=== PATIENT | male | born 1995 | race American Indian/Alaskan Native ===

== ENCOUNTER 2022-05-19 16:05 | Emergency (ER) | payer SELFPAY ==
[2022-05-19] MEDS ORDERED: ACETAMINOPHEN 500 MG TAB PO SCH (16:36)
--- NOTE | 2022-05-19 16:36 | Emergency Department Report ---
Minor Respiratory - HPI Duration: 2 Days Pain Location: Chest Severity: mild Minor Respiratory: Yes Able to Tolerate Fluids, Yes Chest Pain, Yes Shortness of Breath, No Rhinorrhea, No Sore Throat, No Ear Pain, No Cough, No Sick Contacts, No Hemoptysis, No Fever Other History: 27 YO COMES TO ER WITH FEVER AND CHILLS. COUGH AND CONGESTION. NOT COVID IMMUNIZED <RUPattKENJI DICKINSON - Last Filed: 05/19/22 16:55> <JEANNINE HART - Last Filed: 05/20/22 16:09> - HPI Stated Complaint: SOB/CHEST PAIN/FATIGUGE/SHAKING ED Review of Systems ROS: Stated complaint: SOB/CHEST PAIN/FATIGUGE/SHAKING Other details as noted in HPI Comment: All other systems reviewed and negative <KENJI ALFREDO - Last Filed: 05/19/22 16:55> ROS: Stated complaint: SOB/CHEST PAIN/FATIGUGE/SHAKING Other details as noted in HPI <JEANNINE HART - Last Filed: 05/20/22 16:09> ED Past Medical Hx - Past Medical History Previous Medical History?: Yes Hx Asthma: Yes - Surgical History Past Surgical History?: No Hx Coronary Stent: No - Family History Family history: no significant - Social History Smoking Status: Never Smoker Substance Use Type: None <KENJI ALFREDO Rigoberto - Last Filed: 05/19/22 16:55> Minor Respiratory Exam - Exam General: Vital signs noted. No distress. Alert and acting appropriately. HEENT: Yes Moist Mucous Membranes, No Pharyngeal Erythema, No Pharyngeal Exudates, No Rhinorrhea, No Conjuctival Injection, No Frontal Tenderness, No Maxillary Tenderness Ear: Neither TM Bulge, Neither TM Erythema, Neither EAC Pain, Neither EAC Discharge Neck: Yes Supple, No Adenopathy Lungs: Yes Good Air Exchange, No Wheezes, No Ronchi, No Stridor, No Cough, No Labored Respirations, No Retractions, No Use of Accessory Muscles, No Other Abnormal Lung Sounds Heart: Yes Regular, No Murmur Abdomen: Yes Normal Bowel Sounds, No Tenderness, No Peritoneal Signs Skin: No Rash, No Edema Neurologic: Alert and oriented, no deficits. Musculoskeletal: Unremarkable. <KENJI ALFREDO - Last Filed: 05/19/22 16:55> - Exam General: Vital signs noted. No distress. Alert and acting appropriately. Neurologic: Alert and oriented, no deficits. Musculoskeletal: Unremarkable. <JEANNINE HART - Last Filed: 05/20/22 16:09> ED Course Vital Signs 05/19/22 05/19/22 05/19/22 16:37 20:24 21:00 Temperature 101.8 F H 98.6 F Pulse Rate 130 H 98 H 80 Respiratory 18 14 Rate Blood Pressure 125/90 121/73 [Left] O2 Sat by Pulse 100 100 100 Oximetry <JEANNINE HART - Last Filed: 05/20/22 16:09> ED Medical Decision Making - Medical Decision Making MSE XRAY AND LABS TO ER FOR EVAL - Differential Diagnosis PUI <KENJI ALFREDO - Last Filed: 05/19/22 16:55> - Lab Data Result diagrams: 05/19/22 16:51 05/19/22 16:51 - Medical Decision Making Patient was managed independently by the [facility] level below , I was available for consult but i wasn't directly involved in the care of this patient <JEANNINE HART - Last Filed: 05/20/22 16:09> Critical care attestation.: If time is entered above; I have spent that time in minutes in the direct care of this critically ill patient, excluding procedure time. <KENJI ALFREDO A - Last Filed: 05/19/22 16:55> Critical care attestation.: If time is entered above; I have spent that time in minutes in the direct care of this critically ill patient, excluding procedure time. <JEANNINE HART - Last Filed: 05/20/22 16:09> ED Disposition Is pt being admited?: No Does the pt Need Aspirin: No <KENJI ALFREDO - Last Filed: 05/19/22 16:55> Is pt being admited?: No Does the pt Need Aspirin: No <JEANNINE HART - Last Filed: 05/20/22 16:09> Clinical Impression: Acute upper respiratory infection, Fever and chills Disposition: 01 HOME / SELF CARE / HOMELESS Condition: Stable Instructions: Cough, Adult, Onkc-ls-[id number], Acute Bronchitis, Adult, Xsya-ry-Nosw, Upper Respiratory Infection, Adult, Zzgl-cn-Gngz, Asthma, Adult, Gjsy-yg-Mche, Fever, Adult, Sjnx-aw-Wqkk, Acute Bronchitis (ED) Additional Instructions: All lab test results were reviewed and all nonactionable. Chest x-ray shows no acute cardiopulmonary abnormalities or pneumonitis. Take medication with food, drink plenty fluids follow-up with your primary care physician in 7 to 10 days for reevaluation. Prescriptions: methylPREDNISolone [Medrol 4MG DOSEPAK (21 tabs)] 4 mg PO DAILY #21 tab Ibuprofen [Motrin] 800 mg PO Q8HR PRN #30 tablet PRN Reason: Pain , Severe (7-10) Albuterol Sulfate [Proair Digihaler] 1 - 2 puff IH Q4H PRN #1 inh PRN Reason: Shortness Of Breath ALBUTEROL NEB's [Proventil 0.083% NEBS] 3 ml IH Q6H PRN #75 ml PRN Reason: Wheezing Benzonatate [Tessalon Perles] 100 mg PO Q8HR #30 cap Azithromycin [Zithromax Z-TIGIST] 250 mg PO DAILY #6 tab Cetirizine HCl [Zyrtec 10mg tab] 10 mg PO DAILY #30 tab Referrals: [facility] [Provider Group] - 7-10 days Print Language: MOZAMBICAN
--- NOTE | 2022-05-19 17:02 | XRay Report ---
CHEST 2 VIEWS INDICATION / CLINICAL INFORMATION: SOB x 2days. FINDINGS: SUPPORT DEVICES: None. HEART / MEDIASTINUM: No significant abnormality. LUNGS / PLEURA: No significant pulmonary or pleural abnormality. No pneumothorax. ADDITIONAL FINDINGS: No significant additional findings. IMPRESSION: 1. No acute findings. Signer Name: Nelson Lao MD Signed: 05/19/2022 4:58 PM Workstation Name: Take the Interview
[2022-05-19 17:30] LABS: Hematocrit 43.8 % (35.5-45.6); Hemoglobin 14.2 gm/dl (11.8-15.2); Mean Corpuscular HGB Conc 33 % (32-34); Mean Corpuscular Volume 87 fl (84-94); Platelet Count 260 K/mm3 (140-440); Red Blood Count 5.04 M/mm3 (3.65-5.03); Red Cell Distribution Width 13.8 % (13.2-15.2)
[2022-05-19 17:40] LABS: Alanine Aminotransferase 36 units/L (7-56); Albumin 5.2 g/dL (3.9-5); BUN/Creatinine Ratio 8; Blood Urea Nitrogen 9 mg/dL (9-20); Calcium 9.6 mg/dL (8.4-10.2); Hemolysis Index 10
[2022-05-19 20:25] VITALS: BP 121/73
[2022-05-19] MEDS ORDERED: methylPREDNISolone Sod Succinate 125 MG/2 ML INJ IM ONE (21:08)
--- NOTE | 2022-05-19 21:29 | Emergency Department Report ---
- General Chief Complaint: Dyspnea/Respdistress Stated Complaint: SOB/CHEST PAIN/FATIGUGE/SHAKING Source: patient Mode of arrival: Ambulatory Limitations: No Limitations - History of Present Illness Initial Comments: Patient is a 27-year-old male with a history of asthma and morbid obesity who presents to the ED with complaint of acute onset persistent nasal and sinus congestion, diffuse body aches and pains, persistent dry cough with wheezing intermittently and pleuritic chest pain with each coughing episode for the last 1 week. Patient states that the symptoms have been persistent and that in the last 2 days he also experienced persistent intermittent fever and chills with body aches and pains. Patient states that he has been using albuterol inhaler and nebulizer at home with minimal relief. Patient denies dizziness, syncope, chest pain, shortness of breath, abdominal pain, nausea and vomiting or diarrhea, dysuria, urinary frequency and urgency or headache. MD Complaint: fever, cough, rhinorrhea, nasal congestion, sinus pain, other (pleuritic chest) -: Gradual, days(s) (5) Severity: moderate Severity scale (0 -10): 5 Quality: dull, aching Consistency: constant Improves With: nothing Worsens With: nothing Associated Symptoms: denies other symptoms, fever, chills, myalgias, headache, rhinorrhea, nasal congestion, cough, shortness of breath. denies: diaphoresis, sore throat, stiff neck, chest pain, abdominal pain, nausea, diarrhea, dysuria, confusion, right sweats, weight loss, epistaxis, hoarseness, ear pain, other Treatments Prior to Arrival: "cold medicine" - Related Data Previous Rx's Medication Instructions Recorded Last Taken Type ALBUTEROL NEB's [Proventil 0.083% 3 ml IH Q6H PRN #75 ml 05/19/22 Unknown Rx NEBS] Albuterol Sulfate [Proair 1 - 2 puff IH Q4H PRN #1 inh 05/19/22 Unknown Rx Digihaler] Azithromycin [Zithromax Z-TIGIST] 250 mg PO DAILY #6 tab 05/19/22 Unknown Rx Benzonatate [Tessalon Perles] 100 mg PO Q8HR #30 cap 05/19/22 Unknown Rx Cetirizine HCl [Zyrtec 10mg tab] 10 mg PO DAILY #30 tab 05/19/22 Unknown Rx Ibuprofen [Motrin] 800 mg PO Q8HR PRN #30 tablet 05/19/22 Unknown Rx methylPREDNISolone [Medrol 4MG 4 mg PO DAILY #21 tab 05/19/22 Unknown Rx DOSEPAK (21 tabs)] Allergies Allergy/AdvReac Type Severity Reaction Status Date / Time No Known Allergies Allergy Unverified 05/19/22 16:41 ED Review of Systems ROS: Stated complaint: SOB/CHEST PAIN/FATIGUGE/SHAKING Other details as noted in HPI Constitutional: denies: chills, fever Eyes: denies: eye pain, eye discharge, vision change ENT: congestion. denies: ear pain, throat pain Respiratory: no symptoms reported, cough, shortness of breath, wheezing Cardiovascular: denies: chest pain, palpitations Endocrine: no symptoms reported Gastrointestinal: denies: abdominal pain, nausea, vomiting, diarrhea Genitourinary: denies: urgency, dysuria, frequency, hematuria, discharge, testicular pain, testicular mass Musculoskeletal: denies: back pain, joint swelling, arthralgia Skin: denies: rash, lesions Neurological: headache. denies: weakness, paresthesias Psychiatric: denies: anxiety, depression Hematological/Lymphatic: denies: easy bleeding, easy bruising ED Past Medical Hx - Past Medical History Previous Medical History?: Yes Hx Asthma: Yes - Surgical History Past Surgical History?: No Hx Coronary Stent: No - Social History Smoking Status: Never Smoker Substance Use Type: None - Medications Home Medications: Home Medications Medication Instructions Recorded Confirmed Last Taken Type ALBUTEROL NEB's [Proventil 0.083% 3 ml IH Q6H PRN #75 ml 05/19/22 Unknown Rx NEBS] Albuterol Sulfate [Proair 1 - 2 puff IH Q4H PRN #1 inh 05/19/22 Unknown Rx Digihaler] Azithromycin [Zithromax Z-TIGIST] 250 mg PO DAILY #6 tab 05/19/22 Unknown Rx Benzonatate [Tessalon Perles] 100 mg PO Q8HR #30 cap 05/19/22 Unknown Rx Cetirizine HCl [Zyrtec 10mg tab] 10 mg PO DAILY #30 tab 05/19/22 Unknown Rx Ibuprofen [Motrin] 800 mg PO Q8HR PRN #30 tablet 05/19/22 Unknown Rx methylPREDNISolone [Medrol 4MG 4 mg PO DAILY #21 tab 05/19/22 Unknown Rx DOSEPAK (21 tabs)] ED Physical Exam - General Limitations: No Limitations General appearance: alert, in no apparent distress - Head Head exam: Present: atraumatic, normocephalic, normal inspection - Eye Eye exam: Present: normal appearance, PERRL, EOMI Pupils: Present: normal accommodation - ENT ENT exam: Present: normal orophraynx, mucous membranes moist, TM's normal bilaterally, normal external ear exam - Neck Neck exam: Present: normal inspection, full ROM. Absent: tenderness - Respiratory Respiratory exam: Present: normal lung sounds bilaterally. Absent: respiratory distress, wheezes, rales, rhonchi, stridor, chest wall tenderness, accessory muscle use, decreased breath sounds, prolonged expiratory - Cardiovascular Cardiovascular Exam: Present: normal rhythm, tachycardia, normal heart sounds. Absent: systolic murmur, diastolic murmur, rubs, gallop - GI/Abdominal GI/Abdominal exam: Present: soft, normal bowel sounds. Absent: tenderness, guarding, rigid, hyperactive bowel sounds, hypoactive bowel sounds, organomegaly, mass - Extremities Exam Extremities exam: Present: normal inspection, full ROM, normal capillary refill. Absent: tenderness, pedal edema, joint swelling, calf tenderness - Back Exam Back exam: Present: normal inspection, full ROM. Absent: tenderness, CVA tenderness (R), CVA tenderness (L), muscle spasm, paraspinal tenderness, vertebral tenderness - Neurological Exam Neurological exam: Present: alert, oriented X3, CN II-XII intact, normal gait, reflexes normal - Psychiatric Psychiatric exam: Present: normal affect, normal mood - Skin Skin exam: Present: warm, dry, intact, normal color. Absent: rash ED Course Vital Signs 05/19/22 05/19/22 05/19/22 16:37 20:24 21:00 Temperature 101.8 F H 98.6 F Pulse Rate 130 H 98 H 80 Respiratory 18 14 Rate Blood Pressure 125/90 121/73 [Left] O2 Sat by Pulse 100 100 100 Oximetry ED Medical Decision Making - Lab Data Result diagrams: 05/19/22 16:51 05/19/22 16:51 - Radiology Data Radiology results: report reviewed, image reviewed [facility] [address] [place] [address] XRay Report Signed Patient: MARIA R PARKS MR#: [id number] 52 : 1995 Acct:[id number] Age/Sex: 27 / M ADM Date: 05/19/22 Loc: ED Attending Dr: Ordering Physician: KENJI ALFREDO Date of Service: 05/19/22 Procedure(s): XR chest routine 2V Accession Number(s): [id number] cc: KENJI ALFREDO Fluoro Time In Minutes: CHEST 2 VIEWS INDICATION / CLINICAL INFORMATION: SOB x 2days. FINDINGS: SUPPORT DEVICES: None. HEART / MEDIASTINUM: No significant abnormality. LUNGS / PLEURA: No significant pulmonary or pleural abnormality. No pneumothorax. ADDITIONAL FINDINGS: No significant additional findings. IMPRESSION: 1. No acute findings. Signer Name: Nelson Lao MD Signed: 05/19/2022 4:58 PM Workstation Name: [id number] Transcribed By: Dictated By: Nelson Lao MD Electronically Authenticated By: Nelson Lao MD Signed Date/Time: 05/19/221657 DD/ 57 TD/TT: - Medical Decision Making This is a 27-year-old male with a history of asthma and morbid obesity who presents to the ED with complaint of acute onset persistent nasal and sinus congestion, diffuse body aches and pains, persistent dry cough with wheezing intermittently and pleuritic chest pain with each coughing episode for the last 1 week. Patient states that the symptoms have been persistent and that in the last 2 days he also experienced persistent intermittent fever and chills with body aches and pains. Patient states that he has been using albuterol inhaler and nebulizer at home with minimal relief. In the ED, patient is alert and oriented x3 and is not in any distress. Patient is however tachycardic and febrile in triage. Patient was treated for fever in the ED. Chest x-ray showed no acute cardiopulmonary abnormalities or pneumonitis. All lab test results were reviewed and are all nonactionable except for acute leukocytosis of 12,000. Patient was treated in the ED with steroids and with Tylenol for fever. On reevaluation, patient's fever resolved, tachycardia also resolved and the pat ient felt better. Patient was discharged home on medications and advised to follow-up with his primary care physician in 7 to 10 days for reevaluation. Patient was advised to return to the ED immediately if symptoms get worse. - Differential Diagnosis URI; Bronchitis; Pneumonia; Asthma Critical care attestation.: If time is entered above; I have spent that time in minutes in the direct care of this critically ill patient, excluding procedure time. ED Disposition Clinical Impression: Acute upper respiratory infection, Acute asthmatic bronchitis, Fever and chills Fever Qualifiers: Fever type: unspecified Qualified Code(s): R50.9 - Fever, unspecified Disposition: 01 HOME / SELF CARE / HOMELESS Is pt being admited?: No Does the pt Need Aspirin: No Condition: Stable Instructions: Cough, Adult, [id number]-rd-[id number], Acute Bronchitis, Adult, Vzlm-se-Nfdy, Upper Respiratory Infection, Adult, Yioe-jh-Rqha, Asthma, Adult, Fqyg-uk-Jbwf, Fever, Adult, Qchx-yl-Rjpr, Acute Bronchitis (ED) Additional Instructions: All lab test results were reviewed and all nonactionable. Chest x-ray shows no acute cardiopulmonary abnormalities or pneumonitis. Take medication with food, drink plenty fluids follow-up with your primary care physician in 7 to 10 days for reevaluation. Prescriptions: methylPREDNISolone [Medrol 4MG DOSEPAK (21 tabs)] 4 mg PO DAILY #21 tab Ibuprofen [Motrin] 800 mg PO Q8HR PRN #30 tablet PRN Reason: Pain , Severe (7-10) Albuterol Sulfate [Proair Digihaler] 1 - 2 puff IH Q4H PRN #1 inh PRN Reason: Shortness Of Breath ALBUTEROL NEB's [Proventil 0.083% NEBS] 3 ml IH Q6H PRN #75 ml PRN Reason: Wheezing Benzonatate [Tessalon Perles] 100 mg PO Q8HR #30 cap Azithromycin [Zithromax Z-TIGIST] 250 mg PO DAILY #6 tab Cetirizine HCl [Zyrtec 10mg tab] 10 mg PO DAILY #30 tab Referrals: [facility] [Provider Group] - 7-10 days Time of Disposition: 21:34 Print Language: BULGARIAN
--- NOTE | 2022-05-20 18:39 | Electrocardiograph Report ---
[facility] Test Date: 2022-05-19 Test Time: 18:22:17 Pat Name: MARIA R PARKS Department: Room: Gender: M [employer]: NURSE : 1995 Requested By: AUSTEN GRANADO Order Number: [id number] Reading MD: Spike Camacho Measurements Intervals Ironside Rate: 113 P: 57 MD: 152 QRS: 25 QRSD: 86 T: 18 QT: 330 QTc: 452 Interpretive Statements Sinus tachycardia Low voltage, precordial leads No previous ECG available for comparison Electronically Signed On 05-20-2022 18:39:03 EDT by Spike Camacho
== END 2022-05-19 22:48 | disposition home or self-care (01) ==
LOC: ED 16:05
DX: J06.9 Acute upper respiratory infection, unspecified (principal); J45.909 Unspecified asthma, uncomplicated; Z79.899 Other long term (current) drug therapy
CPT/HCPCS: 36415; 71046; 80053; 82962; 85027; 93005; 96372; 99284; J2930